=== PATIENT | female | born 1960 ===

== ENCOUNTER 2017-07-01 19:56 | Emergency (ER) | payer MEDICAID ==
--- NOTE | 2017-07-01 21:51 | Emergency Department Record ---
History of Present Illness - General Chief Complaint: Cough Stated Complaint: COUGH,CHEST CONGESTION, Source: Patient, Family Mode of Arrival: Ambulatory Limitations: No limitations - History of Present Illness Initial Comments: 57 yo female presents with a cough. The cough has been present for about 2 weeks. Her wheezing has increased. She does have COPD with second hand smoke exposure. Her has been ill as well. No fevers or chest pain. No edema. No chest pain. No sore throat. MD Complaint: Cough -: Week(s) (2) Severity: Moderate Quality: Other Consistency: Intermittent Improves With: Nothing Worsens With: Other (coughing) Context: Sick contacts Associated Symptoms: Cough Treatments Prior to Arrival: None - Related Data Previous Rx's Medication Instructions Recorded Azithromycin [Zithromax] 250 mg PO DAILY #4 tablet 07/01/17 Ipratropium/Albuterol Sulfate 1 - 2 puff IH QID #1 inh 07/01/17 [Combivent] Prednisone [Prednisone 20Mg] 20 mg PO BID #10 tab 07/01/17 Allergies Allergy/AdvReac Type Severity Reaction Status Date / Time No Known Allergies Allergy Unverified 05/06/17 10:55 Review of Systems Constitutional: Denies: Chills, Fever, Malaise, Weakness Eyes: Denies: Eye discharge ENT: Reports: Congestion. Denies: Dental pain, Ear pain Respiratory: Reports: Cough, Dyspnea, Wheezes. Denies: Hemoptysis Cardiovascular: Denies: Chest pain, Palpitations, Syncope Endocrine: Denies: Fatigue, Polydipsia, Polyuria Gastrointestinal: Denies: Abdominal pain, Diarrhea, Nausea, Vomiting Genitourinary: Denies: Discharge, Dyspareunia, Dysuria, Retention, Urgency Musculoskeletal: Denies: Arthralgia, Back pain, Joint swelling, Myalgia, Neck pain Skin: Denies: Bruising, Change in color, Rash Neurological: Denies: Headache, Numbness, Weakness Psychiatric: Denies: Anxiety Hematological/Lymphatic: Denies: Blood Clots, Easy bleeding, Easy bruising, Swollen glands Physical Exam - General General Appearance: Alert, Oriented x3, Cooperative, No acute distress Limitations: No limitations - Head Head exam: Normal inspection - Eye Eye exam: Normal appearance, PERRL. negative: Conjunctival injection, Periorbital swelling, Scleral icterus - ENT ENT exam: Normal exam, Mucous membranes moist, Normal orophraynx Ear exam: Normal external inspection Nasal Exam: Normal inspection Mouth exam: Normal external inspection Throat exam: Normal inspection. negative: Tonsillar erythema, Tonsillomegaly, Tonsillar exudate, R peritonsillar mass, L peritonsillar mass - Neck Neck exam: Normal inspection - Respiratory Respiratory exam: Decreased breath sounds, Prolonged expiratory, Rhonchi, Wheezes. negative: Normal lung sounds bilaterally, Accessory muscle use, Respiratory distress - Cardiovascular Cardiovascular Exam: Regular rate, Normal rhythm, Normal heart sounds - GI/Abdominal GI/Abdominal exam: Soft. negative: Tenderness - Rectal Rectal exam: Deferred - exam: Deferred - Extremities Extremities exam: Normal inspection, Full ROM, Normal capillary refill. negative: Tenderness - Back Back exam: Denies: CVA tenderness (R), CVA tenderness (L) - Neurological Neurological exam: Alert, Oriented X3 - Psychiatric Psychiatric exam: Normal affect, Normal mood - Skin Skin exam: Dry, Intact, Normal color, Warm Course - Reevaluation(s) Reevaluation #1: Vitals reviewed No fever or hypoxia 07/01/17 22:07 07/01/17 22:53 The influenza are both negative The CXR was reviewed. Questionable early small RML infiltrate She is well appearing, no hypoxia, DC on antibiotics, steroids, and her breathing treatments. Disposition Disposition: Discharge Clinical Impression: COPD exacerbation Pneumonia Qualifiers: Pneumonia type: due to unspecified organism Laterality: right Lung location: middle lobe of lung Qualified Code(s): J18.1 - Lobar pneumonia, unspecified organism Disposition: Home, Self-Care Condition: (1) Good Instructions: COPD (Chronic Obstructive Pulmonary Disease) (ED), Pneumonia (ED) Additional Instructions: Call your doctor for close follow up Return if worse, fever, vomiting or any new concerns Prescriptions: Azithromycin [Zithromax] 250 mg PO DAILY #4 tablet Ipratropium/Albuterol Sulfate [Combivent] 1 - 2 puff IH QID #1 inh Prednisone [Prednisone 20Mg] 20 mg PO BID #10 tab Forms: Patient Portal Access Time of Disposition: 22:58 Quality - Quality Measures Quality Measures: N/A - Blood Pressure Screening Does Patient Have Any of the Following: No Blood Pressure Classification: Hypertensive Reading Systolic Measurement: 140 Diastolic Measurement: 65 Screening for High Blood Pressure: < Pre-Hypertensive BP, F/U Documented > [ G8950] Pre-Hypertensive Follow-up Interventions: Referral to alternative/primary care provider.
[2017-07-01] MEDS ORDERED: IPRATROPIUM/ALBUTEROL (0.5MG/3MG) NEB INH ONE (22:02)
[2017-07-01] MEDS ORDERED: PREDNISONE 20 MG TAB PO ONE (22:02)
[2017-07-01] MEDS ORDERED: AZITHROMYCIN 500 MG TABLET PO ONE (22:02)
[2017-07-01 22:19] LABS: INFLUENZA A NEGATIVE (NEGATIVE); INFLUENZA B NEGATIVE (NEGATIVE)
--- NOTE | 2017-07-02 09:01 | RADIOLOGY REPORT ---
EXAM: CHEST 2 VIEWS HISTORY: COUGH AND CONGESTION FOR TWO WEEKS. TECHNIQUE: PA and lateral views. COMPARISON: None. FINDINGS: Heart size is normal. Particularly on the lateral view, there does appear to be a small amount of infiltrate overlying the heart, probably within the right middle lobe rather than lingula. No pleural effusion or pneumothorax evident. IMPRESSION: SMALL AMOUNT OF INFILTRATE IN THE LUNG BASE ANTERIORLY ON THE LATERAL VIEW, PROBABLY WITHIN THE RIGHT MIDDLE LOBE. FOLLOW-UP FILMS SUGGESTED TO DEMONSTRATE CLEARING. JOB NUMBER: [id number] MTDD
== END 2017-07-01 23:05 | disposition home or self-care (01) ==
LOC: ER 19:56
DX: J44.1 Chronic obstructive pulmonary disease with (acute) exacerbation (principal); J18.1 Lobar pneumonia, unspecified organism; F17.210 Nicotine dependence, cigarettes, uncomplicated
CPT/HCPCS: 99283; 99284; 87400; 71020; 94640; J7512

== ENCOUNTER 2019-03-11 09:12 | Emergency (ER) | payer MEDICAID ==
--- NOTE | 2019-03-11 11:00 | Emergency Department Record ---
History of Present Illness - General Chief complaint: Cold Stated complaint: SINUS ISSUES Time Seen by Provider: 03/11/19 10:52 Source: Patient Mode of Arrival: Ambulatory Limitations: No limitations - History of Present Illness Initial comments: The patient is here due to a 3 day hx of cough, congestion and colored nasal drainage. She has been having ear pain off and on. There is no hx of fever, chills, CP, SOB, or TORREY. MD complaint: Other Onset/Timin -: Days(s) Location: R ear Severity: Mild Severity scale (1-10): 7 Consistency: Constant Improves with: None Worsens with: None Context-Epistaxis: Other Associated Symptoms: Cough, Sore throat - Related Data Previous Rx's Medication Instructions Recorded Doxycycline Monohydrate [Mondoxyne 100 mg PO BID 7 Days #14 capsule 03/11/19 ] Allergies Allergy/AdvReac Type Severity Reaction Status Date / Time No Known Allergies Allergy Unverified 05/06/17 10:55 Travel Screening - Travel/Exposure Within Last 30 Days Have you traveled within the last 30 days?: No Review of Systems Constitutional: Reports: Malaise. Denies: Chills, Fever Eyes: Denies: Eye discharge ENT: Reports: Congestion Respiratory: Reports: Cough. Denies: Dyspnea Past Medical History - SOCIAL HISTORY Smoking Status: Light tobacco smoker (<10/day) - RESPIRATORY Hx Respiratory Disorders: Yes Hx Asthma: Yes Hx COPD: Yes - CARDIOVASCULAR Hx Cardio Disorders: Yes Hx Hypertension: Yes - NEURO Hx Neuro Disorders: Yes Hx Seizures: Yes - GI Hx GI Disorders: No - Hx Genitourinary Disorders: No - ENDOCRINE Hx Endocrine Disorders: No - MUSCULOSKELETAL Hx Musculoskeletal Disorders: No - PSYCH Hx Psych Problems: No - HEMATOLOGY/ONCOLOGY Hx Hematology/Oncology Disorders: No Family Medical History Any Significant Family History?: No Physical Exam - General General Appearance: Alert, Oriented x3, Cooperative, No acute distress - Head Head exam: Atraumatic, Normocephalic, Normal inspection - Eye Eye exam: Normal appearance, PERRL - ENT Throat exam: Normal inspection. negative: Tonsillar erythema, Tonsillar exudate - Neck Neck exam: Normal inspection, Full ROM. negative: Lymphadenopathy, Tenderness - Respiratory Respiratory exam: Normal lung sounds bilaterally. negative: Rales, Respiratory distress, Rhonchi, Stridor, Wheezes - Cardiovascular Cardiovascular Exam: Regular rate, Normal rhythm, Normal heart sounds - GI/Abdominal GI/Abdominal exam: Soft, Normal bowel sounds. negative: Rebound, Rigid, Tenderness - Extremities Extremities exam: Normal inspection, Full ROM, Normal capillary refill. negative: Tenderness Course Vital Signs 03/11/19 10:51 Temperature 97.3 F L Pulse Rate [ 58 L Pulse Ox Probe] Respiratory 18 Rate Blood Pressure 129/70 [Left Arm] Pulse Ox 95 - Reevaluation(s) Reevaluation #1: I did explain to the patient that we will treat her with Doxycycline for a presumed Sinus infection. She is to F/U with her PCP next week if not better. 03/11/19 10:57 Disposition Disposition: Discharge Clinical Impression: Sinusitis Qualifiers: Sinusitis location: unspecified location Chronicity: acute Recurrence: non- recurrent Qualified Code(s): J01.90 - Acute sinusitis, unspecified Disposition: Home, Self-Care Condition: (2) Stable Instructions: Sinusitis (ED) Additional Instructions: Please take an OTC cough medicine if needed and take the Doxycyline. Please see your family doctor for recheck next week if not better and return to the ER for any worsening symptoms. Prescriptions: Doxycycline Monohydrate [Mondoxyne Nl] 100 mg PO BID 7 Days #14 capsule Forms: Patient Portal Access Time of Disposition: 10:59 Quality - Quality Measures Quality Measures: N/A - Blood Pressure Screening View Details: Yes Does Patient Have Any of the Following: Active Dx of HTN Blood Pressure Classification: Pre-Hypertensive BP Reading Systolic Measurement: 129 Diastolic Measurement: 70 Screening for High Blood Pressure: Patient Exclusion, Hx of HTN [G9744]
== END 2019-03-11 11:08 | disposition home or self-care (01) ==
LOC: ER 09:12
DX: J01.90 Acute sinusitis, unspecified (principal); R05 Cough; I10 Essential (primary) hypertension; F17.210 Nicotine dependence, cigarettes, uncomplicated
CPT/HCPCS: 99283

== ENCOUNTER 2019-07-18 20:21 | Emergency (ER) | payer MEDICAID ==
[2019-07-18] MEDS ORDERED: IBUPROFEN 600 MG TABLET PO ONE (20:27)
--- NOTE | 2019-07-18 20:32 | Emergency Department Record ---
History of Present Illness - General Chief Complaint: Fall Injury Stated Complaint: LT ARM FALL INJURY Time Seen by Provider: 07/18/19 20:22 Source: Patient Mode of Arrival: Ambulatory Limitations: No limitations - History of Present Illness Initial Comments: 59 yo female presents to ED for evaluation following a slip and fall on ice that occurred approximately 1 hour ago. Patient denies other injury on examination, and denies pain to the wrist or shoulder on exam. Patient denies use of anticoagulation medications, denies injury to the head, neck, chest, or pelvis. Patient denies taking anything for pain prior to arrival. MD Complaint: Fall Onset/Timin -: Hour(s) When Fall Occurred: 1 hour [employer] Fall Witnessed: Yes, by family Place Fall Occurred: Home Loss of Consciousness: None Prolonged Down Time?: No Symptoms Prior to Fall: None Location - Extremities: Left: Elbow Severity: Moderate Quality: Aching - [place] Coma Scale Eye Response: (4) Open spontaneously Motor Response: (6) Obeys commands Verbal Response: (5) Oriented Marlen Total: 15 - Related Data Allergies Allergy/AdvReac Type Severity Reaction Status Date / Time No Known Allergies Allergy PT UNSURE Verified 07/18/19 20:27 OF REACTION Review of Systems Constitutional: Denies: Chills, Fever, Malaise, Night sweats Eyes: Denies: Eye discharge, Eye pain ENT: Denies: Congestion, Ear pain Respiratory: Denies: Cough, Dyspnea Cardiovascular: Denies: Chest pain, Dyspnea on exertion Endocrine: Denies: Fatigue, Heat or cold intolerance Gastrointestinal: Denies: Abdominal pain, Nausea, Vomiting Genitourinary: Denies: Incontinence, Retention Musculoskeletal: Reports: Arthralgia. Denies: Back pain, Gout, Joint swelling Skin: Reports: Bruising. Denies: Change in color Neurological: Denies: Abnormal gait, Confusion, Headache, Seizure Psychiatric: Denies: Anxiety Hematological/Lymphatic: Denies: Anemia, Blood Clots Past Medical History - SOCIAL HISTORY Smoking Status: Light tobacco smoker (<10/day) - RESPIRATORY Hx Respiratory Disorders: Yes Hx Asthma: Yes Hx COPD: Yes - CARDIOVASCULAR Hx Cardio Disorders: Yes Hx Hypertension: Yes - NEURO Hx Neuro Disorders: Yes Hx Seizures: Yes - GI Hx GI Disorders: No - Hx Genitourinary Disorders: No - ENDOCRINE Hx Endocrine Disorders: No - MUSCULOSKELETAL Hx Musculoskeletal Disorders: No - PSYCH Hx Psych Problems: No - HEMATOLOGY/ONCOLOGY Hx Hematology/Oncology Disorders: No Physical Exam - General General Appearance: Alert, Oriented x3, Cooperative, Mild distress Limitations: No limitations - Head Head exam: Atraumatic, Normocephalic, Normal inspection Head exam detail: negative: Abrasion, Contusion, Yin's sign, General tenderness, Hematoma, Laceration - Eye Eye exam: Normal appearance. negative: Conjunctival injection, Periorbital swelling, Periorbital tenderness, Scleral icterus - ENT Ear exam: negative: Auricular hematoma, Auricular trauma Nasal Exam: negative: Active bleeding, Discharge, Dried blood, Foreign body Mouth exam: negative: Drooling, Laceration, Muffled voice, Tongue elevation - Neck Neck exam: Normal inspection. negative: Meningismus, Tenderness - Respiratory Respiratory exam: Normal lung sounds bilaterally. negative: Rales, Respiratory distress, Rhonchi, Stridor - Cardiovascular Cardiovascular Exam: Regular rate, Normal rhythm, Normal heart sounds Peripheral Pulses: 3+: Radial (L) - GI/Abdominal GI/Abdominal exam: Soft. negative: Rebound, Rigid, Tenderness - Rectal Rectal exam: Deferred - exam: Deferred - Extremities Extremities exam: Tenderness (Mild STS, abrasions, ecchymosis to the lateral left elbow on examination, FROm intact. Strond distal radial pulse, com partments of the forearm/upper arm are soft on examination.). negative: Calf tenderness, Pedal edema - Back Back exam: Denies: CVA tenderness (R), CVA tenderness (L) - Neurological Neurological exam: Alert, Normal gait, Oriented X3 - Psychiatric Psychiatric exam: Normal affect, Normal mood - Skin Skin exam: Normal color. negative: Abrasion Type of lesion: negative: abrasion Course - Reevaluation(s) Reevaluation #1: 07/18/19 20:52 Left elbow: No acute process Patient was updated on all results, symptoms appear c/w probable contusion. Patient appears stable for discharge with symptomatic care as directed. Disposition Disposition: Discharge Clinical Impression: Elbow contusion Qualifiers: Encounter type: initial encounter Laterality: left Qualified Code(s): S50.02XA - Contusion of left elbow, initial encounter Disposition: Home, Self-Care Condition: (2) Stable Instructions: Contusion in Adults (ED) Additional Instructions: Return to ED if your symptoms worsen or if you have any concerns. Ibuprofen as directed. Follow-up with your family doctor in 3-5 days as directed. Forms: Patient Portal Access Time of Disposition: 20:32 Quality - Quality Measures Quality Measures: N/A - Blood Pressure Screening Does Patient Have Any of the Following: No Blood Pressure Classification: Hypertensive Reading Systolic Measurement: 149 Diastolic Measurement: 94 Screening for High Blood Pressure: < First Hypertensive BP, F/U Documented > [G8950] First Hypertensive Follow-up Interventions: Referral to alternative/primary care provider.
--- NOTE | 2019-07-18 20:51 | RADIOLOGY REPORT ---
EXAMINATION: Left Elbow Complete, Minimum Three Views EXAM DATE: 07/18/2019 8:48 PM TECHNIQUE: AP, lateral, and oblique INDICATION: fall injury COMPARISON: None ENCOUNTER: Initial FINDINGS: There is no bone or joint abnormality. IMPRESSION: No acute abnormality, follow-up MRI if symptoms persist Dictated by: Andrew Samano MD on 07/18/2019 8:49 PM. .
== END 2019-07-18 21:05 | disposition home or self-care (01) ==
LOC: ER 20:21
DX: S50.02XA Contusion of left elbow, initial encounter (principal); I10 Essential (primary) hypertension; J44.9 Chronic obstructive pulmonary disease, unspecified; F17.210 Nicotine dependence, cigarettes, uncomplicated; W00.0XXA Fall on same level due to ice and snow, initial encounter; Y92.009 Unspecified place in unspecified non-institutional (private) residence as the place of occurrence of the external cause
CPT/HCPCS: 99283